=== PATIENT | female | born 1995 | race Caucasian/White ===

== ENCOUNTER 2018-11-16 11:25 | Outpatient (CLI) ==
[2018-06-19 08:43] VITALS: BMI 21.5
== END 2018-11-16 11:26 | disposition home or self-care (01) ==
LOC: RHC-LAB 11:25 → FCC-LAB 11:26
PROVIDERS: ATTEND Nurse Practitioner Family
DX: R30.0 Dysuria (principal)
CPT/HCPCS: 81001; 87086; 87186